=== PATIENT | female | born 1975 | race African-American/Black ===

== ENCOUNTER 2016-10-06 18:54 | Inpatient (IN) | payer MEDICARE, OTHER ==
[~2016-10-06] VITALS: Ht 180.3 cm; Wt 107.5 kg
[~2016-10-06 18:54] MED LIST: CHOL100026 PO; DIAMOX PO; FERR-63 PO; GLIM1TAB2 PO; LEVEMIR PEN SUBCUT; LISI40TA4 PO; MINO2.5T19 PO
[2016-10-06] MEDS ORDERED: NITROGLYCERIN OINT 1GM/INCH UDPKT TD STA (19:46)
[2016-10-06 20:31] LABS: BASOPHILS % 0.4 % (0.0-2.0); EOSINOPHILS % 1.3 % (0.0-5.0); HEMATOCRIT. 28.9 % (36.0-48.0); HEMOGLOBIN. 9.4 g/dL (12.0-16.0); LYMPHOCYTES % 18.1 % (20.0-50.0); MEAN CORPUSCULAR HEMOGLOBIN 27.3 pg (28.0-32.0); MEAN CORPUSCULAR VOLUME 83.5 fL (81.0-99.0); MEAN PLATELET VOLUME 7.8 fl (7.4-10.4); MONOCYTES % 6.5 % (2.0-8.0); NEUTROPHILS % 73.7 % (40.0-76.0); PLATELET 229 x1000/uL (130-400); RED BLOOD CELL COUNT 3.46 mill/uL (4.2-5.4); RED CELL DISTRIBUTION WIDTH 16.7 % (11.6-14.6)
[2016-10-06 20:34] LABS: INR 1.1; PROTHROMBIN TIME 11.8 sec
[2016-10-06 20:37] LABS: CARBON DIOXIDE 32 mEq/L (21-32); CHLORIDE 100 mEq/L (98-107)
[2016-10-06 20:44] LABS: TROPONIN I < 0.02 ng/mL (0.00-0.04)
[2016-10-06 21:36] LABS: HCG SCREEN NEGATIVE
[2016-10-06 22:30] VITALS: BP 147/90
[2016-10-06] MEDS ORDERED: DEXTROSE 50% WATER 50ML SYRINGE IV PRN (23:30)
[2016-10-06] MEDS ORDERED: IPRATROPIUM/ALBUTEROL 0.5-3(2.5)MG/3ML NEB HHN PRN (23:30)
[2016-10-06] MEDS ORDERED: ONDANSETRON HCL 4MG/2ML VIAL IV PRN (23:30)
[2016-10-06] MEDS ORDERED: PRED5DRO7 LEFTEYE (23:38)
[2016-10-06] MEDS ORDERED: METO25TA6 PO (23:40)
[2016-10-06] MEDS ORDERED: CARV25TA47 PO (23:40)
[2016-10-07 04:00] VITALS: BP 149/86
[2016-10-07] MEDS: INSULIN LISPRO 100 UNITS/ML SUBCUT SCH ×4 (06:41→21:10)
[2016-10-07] MEDS: BLOOD SUGAR DIAGNOSTIC STRIP TEST SCH ×4 (06:41→21:13)
[2016-10-07 06:43] LABS: BASOPHILS % 0.3 % (0.0-2.0); EOSINOPHILS % 1.3 % (0.0-5.0); LYMPHOCYTES % 23.3 % (20.0-50.0); MEAN PLATELET VOLUME 7.9 fl (7.4-10.4); MONOCYTES % 6.5 % (2.0-8.0); NEUTROPHILS % 68.6 % (40.0-76.0); PLATELET 225 x1000/uL (130-400); RED BLOOD CELL COUNT 3.33 mill/uL (4.2-5.4); RED CELL DISTRIBUTION WIDTH 16.3 % (11.6-14.6)
[2016-10-07] MEDS ORDERED: MORPHINE SULFATE 2 MG/ML CPJ (NOT FOR IM USE) IV SCH (06:45)
[2016-10-07 08:00] VITALS: BP 152/100
[2016-10-07] MEDS ORDERED: METOPROLOL TARTRATE 25MG TABLET PO SCH (09:00)
[2016-10-07] MEDS: PREDNISOLONE ACETATE 1% OPHTH DROPS 1ML LEFTEYE SCH ×4 (10:10→21:11)
[2016-10-07] MEDS: ENOXAPARIN 30MG/0.3ML SYR SUBCUT SCH (10:10)
[2016-10-07] MEDS: OMEPRAZOLE 20MG CAPSULE EXTENDED RELEASE PO SCH (10:11)
[2016-10-07] MEDS: FERROUS SULFATE 325MG TABLET PO SCH ×2 (10:11→17:12)
[2016-10-07] MEDS: MINOXIDIL 2.5MG TABLET PO SCH ×2 (10:12→17:13)
[2016-10-07] MEDS: CARVEDILOL 25MG TABLET PO SCH ×2 (10:12→21:08)
[2016-10-07 12:00] VITALS: BP 128/88
[2016-10-07 16:00] VITALS: BP 119/79
[2016-10-07] MEDS ORDERED: WATER IV NR (18:00)
[2016-10-07] MEDS ORDERED: VANCOMYCIN IV NR (18:00)
[2016-10-07] MEDS ORDERED: DEXT 5% IV NR (18:00)
[2016-10-08] VITALS: BP 152/88
[2016-10-08 04:00] VITALS: BP 141/84
[2016-10-08] MEDS: BLOOD SUGAR DIAGNOSTIC STRIP TEST SCH ×4 (06:03→20:47)
[2016-10-08] MEDS: INSULIN LISPRO 100 UNITS/ML SUBCUT SCH ×4 (06:23→20:59)
[2016-10-08 06:46] LABS: BASOPHILS % 0.3 % (0.0-2.0); EOSINOPHILS % 0.7 % (0.0-5.0); HEMATOCRIT. 29.4 % (36.0-48.0); HEMOGLOBIN. 9.5 g/dL (12.0-16.0); LYMPHOCYTES % 17.5 % (20.0-50.0); MEAN CORPUSCULAR HEMOGLOBIN 27.1 pg (28.0-32.0); MEAN CORPUSCULAR VOLUME 83.9 fL (81.0-99.0); MEAN PLATELET VOLUME 7.7 fl (7.4-10.4); NEUTROPHILS % 77.5 % (40.0-76.0); PLATELET 223 x1000/uL (130-400); RED BLOOD CELL COUNT 3.51 mill/uL (4.2-5.4); RED CELL DISTRIBUTION WIDTH 16.9 % (11.6-14.6)
[2016-10-08 07:56] LABS: PHOSPHORUS 3.3 mg/dL (2.5-4.9)
[2016-10-08 08:00] VITALS: BP 164/110
[2016-10-08] MEDS: ENOXAPARIN 30MG/0.3ML SYR SUBCUT SCH (08:59)
[2016-10-08] MEDS: PREDNISOLONE ACETATE 1% OPHTH DROPS 1ML LEFTEYE SCH ×4 (08:59→21:02)
[2016-10-08] MEDS: CARVEDILOL 25MG TABLET PO SCH ×2 (09:00→20:58)
[2016-10-08] MEDS: OMEPRAZOLE 20MG CAPSULE EXTENDED RELEASE PO SCH (09:00)
[2016-10-08] MEDS: MINOXIDIL 2.5MG TABLET PO SCH ×2 (09:00→18:42)
[2016-10-08] MEDS: FERROUS SULFATE 325MG TABLET PO SCH ×2 (09:00→18:42)
[2016-10-08 12:00] VITALS: BP 132/80
[2016-10-08] MEDS: HYDROCODONE/ACETAMINOPHEN 5/325MG TABLET PO PRN (12:50)
[2016-10-08 16:00] VITALS: BP 133/74
[2016-10-08] MEDS ORDERED: ACETAMINOPHEN 325MG TABLET PO PRN (16:45)
[2016-10-08 20:00] VITALS: BP 163/94
[2016-10-09] VITALS: BP 130/82
[2016-10-09 04:00] VITALS: BP 159/98
[2016-10-09] MEDS: BLOOD SUGAR DIAGNOSTIC STRIP TEST SCH ×4 (06:14→21:24)
[2016-10-09 06:17] LABS: BASOPHILS % 0.3 % (0.0-2.0); EOSINOPHILS % 1.6 % (0.0-5.0); HEMATOCRIT. 28.5 % (36.0-48.0); HEMOGLOBIN. 9.2 g/dL (12.0-16.0); LYMPHOCYTES % 23.1 % (20.0-50.0); MEAN CORPUSCULAR HEMOGLOBIN 27.1 pg (28.0-32.0); MEAN CORPUSCULAR VOLUME 83.9 fL (81.0-99.0); PLATELET 196 x1000/uL (130-400); RED CELL DISTRIBUTION WIDTH 16.8 % (11.6-14.6)
[2016-10-09] MEDS: INSULIN LISPRO 100 UNITS/ML SUBCUT SCH ×4 (06:42→21:23)
[2016-10-09 08:45] VITALS: BP 150/88
[2016-10-09] MEDS: FERROUS SULFATE 325MG TABLET PO SCH ×2 (08:52→16:37)
[2016-10-09] MEDS: PREDNISOLONE ACETATE 1% OPHTH DROPS 1ML LEFTEYE SCH ×4 (08:52→21:21)
[2016-10-09] MEDS: FAMOTIDINE 20MG TABLET PO SCH (08:52)
[2016-10-09] MEDS: MINOXIDIL 2.5MG TABLET PO SCH ×2 (08:52→16:39)
[2016-10-09] MEDS: ENOXAPARIN 40MG/0.4ML SYR SUBCUT SCH (08:53)
[2016-10-09] MEDS: CARVEDILOL 25MG TABLET PO SCH ×2 (11:12→21:21)
[2016-10-09 13:01] VITALS: BP 158/99
[2016-10-09 16:40] VITALS: BP 135/108
[2016-10-09] MEDS: HYDROCODONE/ACETAMINOPHEN 5/325MG TABLET PO PRN (18:41)
[2016-10-09 20:00] VITALS: BP 152/89
[2016-10-10] VITALS: BP 145/98
[2016-10-10 04:00] VITALS: BP 160/98
[2016-10-10] MEDS: INSULIN LISPRO 100 UNITS/ML SUBCUT SCH ×4 (06:28→20:35)
[2016-10-10] MEDS: BLOOD SUGAR DIAGNOSTIC STRIP TEST SCH ×4 (06:28→20:35)
[2016-10-10 06:32] LABS: BASOPHILS % 0.4 % (0.0-2.0); EOSINOPHILS % 2.2 % (0.0-5.0); HEMATOCRIT. 29.1 % (36.0-48.0); HEMOGLOBIN. 9.6 g/dL (12.0-16.0); LYMPHOCYTES % 27.2 % (20.0-50.0); MEAN CORPUSCULAR HEMOGLOBIN 27.6 pg (28.0-32.0); MEAN CORPUSCULAR VOLUME 83.9 fL (81.0-99.0); MEAN PLATELET VOLUME 8.1 fl (7.4-10.4); MONOCYTES % 5.3 % (2.0-8.0); NEUTROPHILS % 64.9 % (40.0-76.0); PLATELET 192 x1000/uL (130-400); RED BLOOD CELL COUNT 3.47 mill/uL (4.2-5.4); RED CELL DISTRIBUTION WIDTH 17.2 % (11.6-14.6)
[2016-10-10 07:40] VITALS: BP 158/105
[2016-10-10] MEDS: CARVEDILOL 25MG TABLET PO SCH ×3 (09:00→20:35)
[2016-10-10] MEDS: PREDNISOLONE ACETATE 1% OPHTH DROPS 1ML LEFTEYE SCH ×4 (09:27→20:34)
[2016-10-10] MEDS: FAMOTIDINE 20MG TABLET PO SCH (09:27)
[2016-10-10] MEDS: FERROUS SULFATE 325MG TABLET PO SCH ×2 (09:27→17:43)
[2016-10-10] MEDS: ENOXAPARIN 40MG/0.4ML SYR SUBCUT SCH (09:28)
[2016-10-10] MEDS: MINOXIDIL 2.5MG TABLET PO SCH ×2 (15:22→17:00)
[2016-10-10 16:00] VITALS: BP 146/92
[2016-10-10 20:00] VITALS: BP 169/94
[2016-10-10] MEDS ORDERED: VANCOMYCIN 1 G PREMIX 200 ML IV NR (20:00)
[2016-10-10] MEDS: HYDROCODONE/ACETAMINOPHEN 5/325MG TABLET PO PRN (21:03)
[2016-10-11] VITALS: BP 126/78
[2016-10-11 04:00] VITALS: BP 121/84
[2016-10-11] MEDS: INSULIN LISPRO 100 UNITS/ML SUBCUT SCH ×3 (06:20→17:40)
[2016-10-11] MEDS: BLOOD SUGAR DIAGNOSTIC STRIP TEST SCH ×3 (06:20→17:10)
[2016-10-11 06:28] LABS: BASOPHILS % 0.4 % (0.0-2.0); EOSINOPHILS % 2.4 % (0.0-5.0); HEMOGLOBIN. 9.5 g/dL (12.0-16.0); LYMPHOCYTES % 22.7 % (20.0-50.0); MEAN CORPUSCULAR HEMOGLOBIN 27.6 pg (28.0-32.0); NEUTROPHILS % 67.5 % (40.0-76.0); PLATELET 176 x1000/uL (130-400); RED BLOOD CELL COUNT 3.46 mill/uL (4.2-5.4); RED CELL DISTRIBUTION WIDTH 17.4 % (11.6-14.6)
[2016-10-11 08:00] VITALS: BP 163/103
[2016-10-11] MEDS: ENOXAPARIN 40MG/0.4ML SYR SUBCUT SCH (09:24)
[2016-10-11] MEDS: PREDNISOLONE ACETATE 1% OPHTH DROPS 1ML LEFTEYE SCH ×3 (09:25→17:00)
[2016-10-11] MEDS: FAMOTIDINE 20MG TABLET PO SCH (09:25)
[2016-10-11] MEDS: FERROUS SULFATE 325MG TABLET PO SCH ×2 (09:25→18:46)
[2016-10-11] MEDS: CARVEDILOL 25MG TABLET PO SCH (09:25)
[2016-10-11] MEDS: MINOXIDIL 2.5MG TABLET PO SCH ×2 (09:25→18:46)
[2016-10-11 10:58] LABS: CLARITY URINE CLEAR (CLEAR); COLOR URINE YELLOW (YELLOW); GLUCOSE URINE 1+ (NEGATIVE); KETONES URINE NEGATIVE (NEGATIVE); LEUKOCYTE ESTERASE URINE NEGATIVE (NEGATIVE); NITRITE URINE NEGATIVE (NEGATIVE); OCCULT BLOOD URINE TRACE (NEGATIVE); PH URINE 7.5 (4.5-8.0); PROTEIN URINE 4+ (NEGATIVE); SPECIFIC GRAVITY URINE 1.028 (1.005-1.030); UROBILINOGEN URINE 0.2 E.U./dL (0.2-1.0)
[2016-10-11 12:00] VITALS: BP 139/82
[2016-10-11] MEDS ORDERED: CLONIDINE 0.1MG TABLET PO NR (17:45)
[2016-10-11 20:06] VITALS: BP 135/85
== END 2016-10-11 22:07 | disposition home or self-care (01) | DRG 871 ==
LOC: ER 22:50 → 8WST 22:51
PROVIDERS: ADMIT Family Medicine Adult Medicine; ATTEND Family Medicine Adult Medicine
PROC: 5A1D60Z (ICD-10-PCS; 2016-10-07)
PROC: 02HV33Z Insertion of Infusion Device into Superior Vena Cava, Percutaneous Approach (ICD-10-PCS; principal; 2016-10-08)
PROC: B5181ZA Fluoroscopy of Superior Vena Cava using Low Osmolar Contrast, Guidance (ICD-10-PCS; 2016-10-08)
PROC: B548ZZA Ultrasonography of Superior Vena Cava, Guidance (ICD-10-PCS; 2016-10-08)
DX: A41.1 Sepsis due to other specified staphylococcus (principal); N18.6 End stage renal disease; I50.33 Acute on chronic diastolic (congestive) heart failure; J96.00 Acute respiratory failure, unspecified whether with hypoxia or hypercapnia; E44.1 Mild protein-calorie malnutrition; I13.2 Hypertensive heart and chronic kidney disease with heart failure and with stage 5 chronic kidney disease, or end stage renal disease; E11.22 Type 2 diabetes mellitus with diabetic chronic kidney disease; R91.8 Other nonspecific abnormal finding of lung field; D63.8 Anemia in other chronic diseases classified elsewhere; E66.9 Obesity, unspecified; D25.9 Leiomyoma of uterus, unspecified; H40.9 Unspecified glaucoma; I27.2 Other secondary pulmonary hypertension; I27.81 Cor pulmonale (chronic); J45.909 Unspecified asthma, uncomplicated; Z79.899 Other long term (current) drug therapy; Z98.891 History of uterine scar from previous surgery; Z98.51 Tubal ligation status; Z86.718 Personal history of other venous thrombosis and embolism; Z76.82 Awaiting organ transplant status; Z79.84 Long term (current) use of oral hypoglycemic drugs; Z99.2 Dependence on renal dialysis; Z68.33 Body mass index [BMI] 33.0-33.9, adult; Z98.61 Coronary angioplasty status; Z79.82 Long term (current) use of aspirin
CPT/HCPCS: 36415; 36569; 71010; 76705; 76937; 77001; 78580; 80048; 80053; 80076; 80202; 81001; 82962; 83605; 83690; 83735; 83880; 84100; 84484; 84703; 85025; 85379; 85610; 87040; 87077; 87086; 87186; 93005; 93306; 99285; C1725; C1893; J1650; J1815; J2270; J3370; J7030; J7040; J7050; J7060